=== PATIENT | male | born 1960 | race Caucasian/White ===

== ENCOUNTER 2022-02-26 10:23 | Emergency (ER) | payer BC ==
[~2022-02-26] VITALS: Ht 172.7 cm; Wt 72.6 kg
[2022-02-26 10:54] VITALS: BP_SYST 134
[2022-02-26] MEDS ORDERED: TRAM50TA2 PO (12:11)
[2022-02-26] MEDS ORDERED: IBUP-1971 PO (12:11)
[2022-02-26 12:47] VITALS: BP_SYST 145
== END 2022-02-26 12:49 | disposition home or self-care (01) ==
LOC: SED 10:23
DX: M66.822 Spontaneous rupture of other tendons, left upper arm (principal)
CPT/HCPCS: 99283